=== PATIENT | female | born 2000 ===

== ENCOUNTER 2023-08-14 10:40 | Outpatient (CLI) | payer OTHER | END 2023-08-14 10:47 | disposition home or self-care (01) | LOC: PRENATAL 10:40 | PROVIDERS: ATTEND Obstetrics & Gynecology Maternal & Fetal Medicine | DX: O36.80X0 Pregnancy with inconclusive fetal viability, not applicable or unspecified (principal); Z36.82 Encounter for antenatal screening for nuchal translucency; Z14.8 Genetic carrier of other disease; Z3A.12 12 weeks gestation of pregnancy ==

== ENCOUNTER 2023-12-31 08:42 | Outpatient (CLI) | payer OTHER | END 2023-12-31 08:43 | disposition home or self-care (01) | LOC: PRENATAL 08:42 | PROVIDERS: ATTEND Obstetrics & Gynecology Maternal & Fetal Medicine | DX: O26.843 Uterine size-date discrepancy, third trimester (principal); O36.8130 Decreased fetal movements, third trimester, not applicable or unspecified; Z3A.32 32 weeks gestation of pregnancy ==